=== PATIENT | female | born 1965 | race Caucasian/White ===

== ENCOUNTER → 2017-04-26 | Day surgery (SDC) | payer OTHER ==
--- NOTE | 2017-04-26 14:46 | OP ---
DATE OF OPERATION: 04/26/2017 PREOPERATIVE DIAGNOSIS: Left abnormal mammography. POSTOPERATIVE DIAGNOSIS: Left abnormal mammography. PROCEDURE: Left stereotactic needle biopsy with clips. SURGEON: mUm Torres MD ANESTHESIA: Local. COMPLICATIONS: None. This is a sterile procedure. INDICATION FOR PROCEDURE: Patient presented for screening mammography that noted cluster microcalcifications in the upper outer left breast. On ML view, there appear to be 2 sets. However, they do have a very similar morphology. My recommendation was for a needle biopsy. The procedure was discussed with her, and all of her questions answered, including need for a clip. PROCEDURE IN DETAIL: Patient was brought to [facility] in [place], laid prone on the Lor[place] table. Using the lateral approach, the calcification was identified, and a sterile prep was obtained. A target was chosen. There was a positive stroke margin. Using Betadine and 1% lidocaine, several cores from this area were obtained. Specimen radiograph showed no cores or calcification, however. Therefore, I removed the needle and retargeted and found the area again. Another sterile prep was done. A target was chosen. There was positive stroke margin. Using Betadine and 1% lidocaine, the 10-gauge Suros device was then reinserted into the breast, and several cores were again taken. Cores this time showed calcification within them. These were handled using classification protocol. A clip was applied in the area. Hemostasis was assured with direct pressure. The incision was covered with Steri-Strips. She tolerated the procedure well and left the breast imaging center in good condition. Selvin [id number]
== END | disposition home or self-care (01) ==
LOC: FMAMMOTONE 10:27
PROVIDERS: ATTEND Surgery
PROC: 0HBU3ZX Excision of Left Breast, Percutaneous Approach, Diagnostic (ICD-10-PCS; principal; 2017-04-26)
DX: N64.9 Disorder of breast, unspecified (principal); R92.8 Other abnormal and inconclusive findings on diagnostic imaging of breast
CPT/HCPCS: 19081; 87899; 88305-TC; A4648